=== PATIENT | female | born 1950 ===

== ENCOUNTER 2016-06-16 22:58 | Emergency (ER) | payer OTHER ==
--- NOTE | 2016-06-17 00:26 | DIAGNOSTIC IMAGING REPORT ---
PROCEDURE: XR CHEST 1 VIEW INDICATION: CHEST PAIN TECHNIQUE: Portable AP view (series 233 5 hours). COMPARISON: Compared to chest x-ray and 03/25/2012. FINDINGS: Allowing for overlying wires and electrodes, lungs are clear. Heart and mediastinum are normal. Thorax is normal. IMPRESSION: 1. Negative chest.
--- NOTE | 2016-06-17 02:50 | ED CLINICAL REPORT ---
Clinical Report - Physicians/Mid Levels [facility] [address] [place] [address] 06/16/2016 22:59 Patient: KATHY MORILLO Time Seen: 2306; initial patient contact. Arrived- By private vehicle. Historian- patient. HISTORY OF PRESENT ILLNESS Chief Complaint: CHEST PAIN. At its maximum, severity described as mild. When seen in the E.D., severity described as mild. Modifying factors- worsened by deep breaths. Not relieved by anything. It is described as pressure and it is described as located in the left chest area. No radiation. 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 It was abrupt in onset and has been constant but is not gone now. Onset during rest. No nausea, vomiting, difficulty breathing or diaphoresis. (no hx of DVT/PE, hx of recent surgery, trauma, hemoptysis/coughing, or leg swelling). No additional chest pain. Similar symptoms previously: None. Recent medical care: Not recently seen/assessed. REVIEW OF SYSTEMS No fever or skin rash. All systems otherwise negative, except as recorded above. PAST HISTORY See nurses notes. Medications: Albuterol Sulfate HFA Inhalation. Atenolol Oral. Lisinopril Oral. Omeprazole Oral. Allergies: Morphine Sulfate. SOCIAL HISTORY Never smoker. No alcohol use or drug use. No recent travel. Is a local resident. FAMILY HISTORY Negative. ADDITIONAL NOTES The nursing notes have been reviewed. PHYSICAL EXAM Vital Signs: 06/16/2016 23:07 BP: 172/77. HR: 68. RR: 20. O2 saturation: 98%. Temp: 97.6 F. Pain level now: 8/10. Hypertensive. Oxygen saturation normal. Appearance: Alert. Oriented X3. No acute distress. (non-toxic). Eyes: Pupils equal, round and reactive to light. Eyes normal inspection. (glasses). ENT: Ears normal. Nose normal. Pharynx normal. Neck: Normal inspection. Neck supple. CVS: Normal heart rate and rhythm. Heart sounds normal. Pulses normal. Respiratory: No respiratory distress. Breath sounds normal. Chest nontender. No rales, rhonchi or wheezes. Abdomen: Soft and nontender. Bowel sounds normal. Skin: Skin warm and dry. Normal skin color. No rash. Normal skin turgor. Extremities: Extremities exhibit normal ROM. No lower extremity edema. LABS, X-RAYS, AND EKG EKG: No acute ischemia. Normal sinus rhythm. Rate: 72. Normal P waves. Normal ABHAY. Normal QRS complex. Normal axis. Normal ST and T waves, QT and QTc. PVCs. Normal sinus. The study has been interpreted contemporaneously. The study has been independently viewed by me. The EKG appears to be a good tracing. Chest CT: (PROCEDURE: CTA THORAX WITH CONTRAST INDICATION: CP AND + D-DIMER TECHNIQUE: 89 ml of Isovue 370 was injected intravenously and axial images were obtained of the entire thorax with 3D sagittal and coronal MIP reconstructions. COMPARISON: Chest x-ray 06/16/2016. FINDINGS: No evidence of pulmonary emboli. Normal lung parenchyma. No effusion or adenopathy. Minor atherosclerosis of the aorta. No aortic dissection or aneurysm. Coronary atherosclerosis. Mild cardiomegaly 1.8 cm left adrenal nodule. Calcified splenic granulomas. Moderate degenerative changes of the spine. IMPRESSION: 1. No evidence of pulmonary emboli, aortic dissection or aneurysm. 2. Mild cardiomegaly 3. 1.8 cm left adrenal nodule). Laboratory Tests: Troponin-I: (LOUISE: 06/17/2016 01:42) ( [facility] 06/17/2016 02:18) Final results Test Result Flag Units (Reference) TROPONIN I <0.05 ng/mL (0.00-1.5) TROPONIN REFERENCE RANGE:<0.1 NEGATIVE0.1-1.5 INDETERMINANT>1.5 POSITIVE UA-Culture if indicated: (LOUISE: 06/16/2016 23:10) ( [facility] 06/17/2016 00:07) Final results Test Result Flag Units (Reference) URINE COLOR YELLOW URINE APPEARANCE CLEAR URINE GLUCOSE NEGATIVE (NEGATIVE) URINE BILIRUBIN NEGATIVE (NEGATIVE) URINE KETONE NEGATIVE (NEGATIVE) URINE SPECIFIC GRAVITY <= 1.005 L (1.010-1.030) URINE PH 6.0 (5.0-8.0) URINE PROTEIN NEGATIVE (NEGATIVE) URINE UROBILINOGEN 0.2 EU/dL (0.2-1.0) URINE NITRITE NEGATIVE (NEGATIVE) URINE BLOOD 1+ (NEGATIVE) URINE LEUK ESTERASE NEGATIVE (NEGATIVE) URINE RBC 0-1 rbc/hpf (0-1) URINE WBC NONE SEEN wbc/hpf (0-1) URINE EPITHELIAL CELLS 0-1 EPI/hpf (0-5) URINE BACTERIA TRACE (<1+) (NONE SEEN) URINE COMMENT CULT NOT INDICATED URINE CULTURES ARE SET-UP BASED ON THE FOLLOWING CRITERIA:POSITIVE NITRITEPOSITIVE LEUKOCYTE ESTERASEGREATER THAN 10 WHITE BLOOD CELLSMODERATE (2+) OR GREATER BACTERIA PT with INR: (LOUISE: 06/16/2016 23:15) ( MsgRcvd 06/17/2016 00:14) Final results Test Result Flag Units (Reference) INR 0.9 (0.8-1.2) Low Intensity Therapy: INR 1.5-2.0 PT range 18.5-23.1Mod.Intensity Therapy: INR 2.0-3.0 PT range 23.1-31.5High Intensity Therapy: INR 2.5-3.5 PT range 27.4-35.5High Intensity Therapy 2: INR 3.0-4.0 PT range 31.5-39.3 D-DIMER QUANTITATIVE 0.54 H ug/mLFEU (0.27-0.52) The primary value of this quantitative assay relates toits negative predictive value (i.e. exclusion) of pulmonaryembolism/deep vein thrombosis/DIC.Elevated levels of d-dimer may also occur with:, age, cancer, inflammation, liver disease,post-op, infection, hematoma, coronary disease, peripheralarteriopathy, bleeding disorders and thrombolytic treatment.Results should be correlated with other clinical andradiological data.Testing Methodology: Latex Immunoassay CMP: (LOUISE: 06/16/2016 23:15) ( MsgRcvd 06/17/2016 00:06) Final results Test Result Flag Units (Reference) GLUCOSE 104 mg/dL (70-110) BUN 14 mg/dL (7-18) CREATININE 0.8 mg/dL (0.6-1.3) Estimated GFR >60 mL/min Estimated GFR- >60 mL/min Note: Persistent reduction over 3 months in eGFR<60 mL/min/1.73 m2 defines CKD. Patients with eGFR values>=60 mL/min/1.73 m2 may also have CKD if evidence ofpersistent proteinuria. Additional information may be foundat [email or web address]. SODIUM 144 mmol/L (136-145) POTASSIUM 3.6 mmol/L (3.5-5.1) CHLORIDE 107 mmol/L (98-107) CARBON DIOXIDE 27 mmol/L (21-32) CALCIUM 8.8 mg/dL (8.5-10.1) TOTAL PROTEIN 7.0 g/dL (6.4-8.2) ALBUMIN 3.8 g/dL (3.3-5.0) BILIRUBIN, TOTAL 0.2 mg/dL (0.0-1.0) ALKALINE PHOSPHATASE 68 U/L (46-116) AST (SGOT) 12 L U/L (15-37) ALT (SGPT) 21 U/L (12-78) TROPONIN I <0.05 ng/mL (0.00-1.5) TROPONIN REFERENCE RANGE:<0.1 NEGATIVE0.1-1.5 INDETERMINANT>1.5 POSITIVE . PROGRESS AND PROCEDURES Course of Care: the patient is a pleasant 65-year-old female with no pertinent past medical history presenting for evaluation of chest pain. Symptoms appear to be atypical at this time. Patient will be evaluated with troponin as well as EKG and imaging of the chest. Patient is agreeable to the treatment and plan. the patient's workup was noted to have negative troponin 1. Second troponin has been ordered as of the patient's time course of her pain. D-dimer is positive. Patient will be evaluated with a CT scan of the chest. Patient updatedon the results of her workup thus far. Patient reports having improved symptoms while here in the emergency department. Repeat examination continues to be reassuring. Patient's workup is notable for the findings above. No acute abnormalities noted on patient's workup. Negative CT a of the chest. No concern at this time for thoracic aortic dissection, pulmonary embolism, acute myocardial infarction given patient's negative troponin 2. Because of the patient's negative workup here in the emergency department and overall low risk for acute myocardial infarction, believed patient is a stable outpatient candidate. Discussed with patient her workup here in the emergency department and need for outpatient cardiology follow-up and risk stratification. Also discussed with the patient her diagnosis, home care, follow-up. All questions have been answered. The patient expressed understanding of these instructions and was agreeable to them. Disposition: Discharged. Condition: good. CLINICAL IMPRESSION 06/16/2016 23:07 BP: 172/77. HR: 68. RR: 20. O2 saturation: 98%. Temp: 97.6 F. Pain level now: 8/10. Blood pressure normal. Oxygen saturation normal. Essential hypertension. Probable atypical chest pain .12 lead EKG performed. (left sided). INSTRUCTIONS Warnings: GENERAL WARNINGS: Return or contact your physician immediately if your condition worsens or changes unexpectedly, if not improving as expected, or if other problems arise. SPECIFICALLY, return if you develop chest, neck, jaw, shoulder, arm, or back pain, difficulty breathing, a fluttering sensation in your chest, lightheadedness, fainting, excessive fatigue, or sudden sweating. symptoms return. Your Current Medications: CONTINUE TAKING THE FOLLOWING MEDICATIONS: Albuterol Sulfate HFA Inhalation. Atenolol Oral. Lisinopril Oral. Omeprazole Oral. Follow-up: Return to the emergency department as needed. Follow up with your doctor in three days. Reason for referral: recheck today's concerns. Summary of care provided to patient via paper. Screening today revealed the patient's blood pressure to be in the hypertensive range. The patient should follow up with a primary care provider for blood pressure management. Understanding of the discharge instructions verbalized by patient. Follow-up with: Prakash Dutton MD, Cardiology, , [facility] - Cardiology, [address] [place] [address], [id number] Follow up in three days. Reason for referral: recheck today's concerns. Summary of care provided to patient via paper. (Electronically signed by Jignesh Agarwal Dr. 06/19/2016 4:26)
--- NOTE | 2016-06-17 02:50 | ED NURSING NOTES ---
Clinical Report - Nurses [facility] [address] [place] [address] 06/16/2016 22:59 Patient: KATHY MORILLO TRIAGE Triage time 2307. Acuity: LEVEL 2. Chief Complaint: CHEST PAIN. CRISSY COMA SCORE: Crissy Coma Scale: 15- eyes open spontaneously (4); best verbal response- oriented x 4 (5); best motor response- obeys commands (6). --23:16 Valery Reyes R.N. 23:07 06/16/16. BP: 172/77. HR: 68. RR: 20 (unlabored). O2 saturation: 98% on room air. Temp: 97.6 F (oral). Pain level now: 09/14. --23:16 Valery Reyes R.N. Weight: 68 kg stated. Height/Length: 65 inches Per Patient. BMI: 25. --23:06 Valery Reyes R.N. Medications Atenolol Oral. Lisinopril Oral. Omeprazole Oral. --23:14 Valery Reyes R.N. Albuterol Sulfate HFA Inhalation. --23:15 Valery Reyes R.N. Allergies Morphine Sulfate. --23:12 Valery Reyes R.N. History Arrived by private vehicle. Historian: patient. Accompanied by family. Primary physician (Salo vargas Fred). ( pt c/o left side chest pain/heaviness x 1 hour. pt states pain increases when taking a deep breath. pt states pain is non-radiating. pt denies any other symptoms. no cardiac hx. hx of MS, asthma, and HTN.). This started just prior to arrival. No difficulty breathing, sweating episodes, nausea, vomiting or cough. 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 SOCIAL HX: Never smoker. No alcohol use or drug use. ABUSE ASSESSMENT: No report of abuse. FALL RISK ASSESSMENT: Fall risk assessment completed. No fall risk identified. NUTRITIONAL RISK ASSESSMENT: The nutritional risk assessment revealed no deficiencies. FUNCTIONAL ASSESSMENT: Functional assessment: no impairments noted. LEARNING NEEDS ASSESSMENT: The learning needs assessment revealed no barriers. SKIN INTEGRITY ASSESSMENT: Skin integrity risk assessment completed. No skin integrity risk identified. --23:16 Valery Reyes R.N. PROBLEMS: Asthma. Hypertension. Multiple Sclerosis. --23:12 Valery Reyes R.N. ADDITIONAL SURGERIES: Carpal Tunnel Surgery. Cholecystectomy. Knee Surgery. --23:12 Valery Reyes R.N. Interventions ID band on patient. To treatment room. --23:16 Valery Reyes R.N. PHYSICAL ASSESSMENT 23:15 pt c/o left side chest pain when taking a deep breath in. Ambulatory to room. GENERAL / NEURO / PSYCH: Alert. Oriented X 4. HEENT: Mucous membranes are pink. RESPIRATORY: Respirations not labored. Breath sounds within normal limits. CVS: Normal sinus rhythm noted. Cardiac rhythm: normal sinus rhythm. Capillary refill less than 2 seconds. GI / : Abdomen soft and nontender. EXTREMITIES: No lower extremity edema. SKIN: Skin is warm and dry. Normal skin turgor. Skin is non-tender. --00:03 Valery Reyes R.N. NURSING PROGRESS NOTES 23:20 06/16/2016 Site #1 started via IV in the left antecubital space with an 20g angiocath, with aseptic technique and good blood return; one attempt. Blood drawn: rainbow set. Labeled in the presence of the patient and sent to the lab. Saline lock flushed with 10 mL saline. --23:25 Luis Garduno R.N. EKG time: (5579). EKG was ordered, performed by a tech and shown to the ED physician. --23:29 Susanna Estevez 23:12. monitoring specialist, pulse oximeter and NIBP monitor placed on patient; monitor alarms on. Head of bed elevated. Two patient identifiers checked. Call light placed in reach. Bed placed in lowest position. Brakes of bed on. --23:36 Luis Garduno R.N. 00:20 pt assisted to bathroom and back to room. pt placed back on cardiac nurse, bp cuff and oximeter. --00:32 Valery Reyes R.N. 23:45 06/16/16. BP: 121/94. HR: 79. RR: 18 (unlabored). O2 saturation: 100% on room air. Pain level now: 07/15. Additional comments: occasional PVCs noted. --01:29 Valery Reyes R.N. 01:22 pt assisted to bathroom and back to room. pt voided. --01:29 Valery Reyes R.N. 01:27 06/17/16. BP: 161/73. HR: 72. RR: 18 (unlabored). O2 saturation: 100% on room air. Pain level now: 0/10. Additional comments: multiple PVCs reading on monitor. MD notified. . --01:30 Valery Reyes R.N. repeat troponin drawn from IV site. labeled and sent to lab. --01:47 Valery Reyes R.N. DISPOSITION / DISCHARGE <<STRICKEN ENTRY-- 01:51 06/17/16. BP: 99/70. HR: 81. RR: 18. O2 saturation: 97% on room air. Temp: deferred. Pain level now: 06/14. --01:52 Valery Reyes R.N. --END STRIKE>> Charted on wrong patient. --01:53 Valery Reyes R.N. <<STRICKEN ENTRY-- Departure time: 0151. --01:52 Valery Reyes R.N. --END STRIKE>> Charted On Wrong Patient --01:57 Valery Reyes R.N. <<STRICKEN ENTRY-- Condition at departure: improved. No learning barriers present. Discharge instructions provided and reviewed with the patient. Reviewed medication(s). Prescription(s) given to the patient (Percocet). Patient verbalized understanding. Written instructions provided in Vincentian. The patient was discharged by the physician. She was discharged home and accompanied by finishing lab technician. She left the Emergency Department ambulatory and via private vehicle. Diving Fisher driving. Medication list reviewed and validated with the patient. --01:53 Valery Reyes R.N. --END STRIKE>> Charted On Wrong Patient --01:53 Valery Reyes R.N. 03:05 06/17/16. BP: 127/62. HR: 63. RR: 20 (unlabored). O2 saturation: 100% on room air. Temp: deferred. Pain level now: 0/10. --04:02 Valery Reyes R.N. Cardiac rhythm: normal sinus rhythm; occasional PVCs. Departure time: 0305. Condition at departure: improved. No learning barriers present. Discharge instructions provided and reviewed with the patient. Patient verbalized understanding. Written instructions provided in Vincentian. The patient was discharged by the physician. She was discharged home and accompanied by spouse. She left the Emergency Department ambulatory and via private vehicle. Spouse driving. Medication list reviewed and validated with the patient. --04:02 Valery Reyes R.N. 03:03 06/17/2016 Site #1 removed upon discharge. Bandage applied. --04:03 Valery Reyes R.N. Locked/Released at 06/17/2016 4:04 by Valery Reyes R.N.
--- NOTE | 2016-06-17 02:50 | ED CLINICAL REPORT ---
Clinical Report - Physicians/Mid Levels [facility] [address] [place] [address] 06/16/2016 22:59 Patient: KATHY MORILLO Time Seen: 2306; initial patient contact. Arrived- By private vehicle. Historian- patient. HISTORY OF PRESENT ILLNESS Chief Complaint: CHEST PAIN. At its maximum, severity described as mild. When seen in the E.D., severity described as mild. Modifying factors- worsened by deep breaths. Not relieved by anything. It is described as pressure and it is described as located in the left chest area. No radiation. 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 It was abrupt in onset and has been constant but is not gone now. Onset during rest. No nausea, vomiting, difficulty breathing or diaphoresis. (no hx of DVT/PE, hx of recent surgery, trauma, hemoptysis/coughing, or leg swelling). No additional chest pain. Similar symptoms previously: None. Recent medical care: Not recently seen/assessed. REVIEW OF SYSTEMS No fever or skin rash. All systems otherwise negative, except as recorded above. PAST HISTORY See nurses notes. Medications: Albuterol Sulfate HFA Inhalation. Atenolol Oral. Lisinopril Oral. Omeprazole Oral. Allergies: Morphine Sulfate. SOCIAL HISTORY Never smoker. No alcohol use or drug use. No recent travel. Is a local resident. FAMILY HISTORY Negative. ADDITIONAL NOTES The nursing notes have been reviewed. PHYSICAL EXAM Vital Signs: 06/16/2016 23:07 BP: 172/77. HR: 68. RR: 20. O2 saturation: 98%. Temp: 97.6 F. Pain level now: 8/10. Hypertensive. Oxygen saturation normal. Appearance: Alert. Oriented X3. No acute distress. (non-toxic). Eyes: Pupils equal, round and reactive to light. Eyes normal inspection. (glasses). ENT: Ears normal. Nose normal. Pharynx normal. Neck: Normal inspection. Neck supple. CVS: Normal heart rate and rhythm. Heart sounds normal. Pulses normal. Respiratory: No respiratory distress. Breath sounds normal. Chest nontender. No rales, rhonchi or wheezes. Abdomen: Soft and nontender. Bowel sounds normal. Skin: Skin warm and dry. Normal skin color. No rash. Normal skin turgor. Extremities: Extremities exhibit normal ROM. No lower extremity edema. LABS, X-RAYS, AND EKG EKG: No acute ischemia. Normal sinus rhythm. Rate: 72. Normal P waves. Normal ABHAY. Normal QRS complex. Normal axis. Normal ST and T waves, QT and QTc. PVCs. Normal sinus. The study has been interpreted contemporaneously. The study has been independently viewed by me. The EKG appears to be a good tracing. Chest CT: (PROCEDURE: CTA THORAX WITH CONTRAST INDICATION: CP AND + D-DIMER TECHNIQUE: 89 ml of Isovue 370 was injected intravenously and axial images were obtained of the entire thorax with 3D sagittal and coronal MIP reconstructions. COMPARISON: Chest x-ray 06/16/2016. FINDINGS: No evidence of pulmonary emboli. Normal lung parenchyma. No effusion or adenopathy. Minor atherosclerosis of the aorta. No aortic dissection or aneurysm. Coronary atherosclerosis. Mild cardiomegaly 1.8 cm left adrenal nodule. Calcified splenic granulomas. Moderate degenerative changes of the spine. IMPRESSION: 1. No evidence of pulmonary emboli, aortic dissection or aneurysm. 2. Mild cardiomegaly 3. 1.8 cm left adrenal nodule). Laboratory Tests: Troponin-I: (LOUISE: 06/17/2016 01:42) ( [facility] 06/17/2016 02:18) Final results Test Result Flag Units (Reference) TROPONIN I <0.05 ng/mL (0.00-1.5) TROPONIN REFERENCE RANGE:<0.1 NEGATIVE0.1-1.5 INDETERMINANT>1.5 POSITIVE UA-Culture if indicated: (LOUISE: 06/16/2016 23:10) ( [facility] 06/17/2016 00:07) Final results Test Result Flag Units (Reference) URINE COLOR YELLOW URINE APPEARANCE CLEAR URINE GLUCOSE NEGATIVE (NEGATIVE) URINE BILIRUBIN NEGATIVE (NEGATIVE) URINE KETONE NEGATIVE (NEGATIVE) URINE SPECIFIC GRAVITY <= 1.005 L (1.010-1.030) URINE PH 6.0 (5.0-8.0) URINE PROTEIN NEGATIVE (NEGATIVE) URINE UROBILINOGEN 0.2 EU/dL (0.2-1.0) URINE NITRITE NEGATIVE (NEGATIVE) URINE BLOOD 1+ (NEGATIVE) URINE LEUK ESTERASE NEGATIVE (NEGATIVE) URINE RBC 0-1 rbc/hpf (0-1) URINE WBC NONE SEEN wbc/hpf (0-1) URINE EPITHELIAL CELLS 0-1 EPI/hpf (0-5) URINE BACTERIA TRACE (<1+) (NONE SEEN) URINE COMMENT CULT NOT INDICATED URINE CULTURES ARE SET-UP BASED ON THE FOLLOWING CRITERIA:POSITIVE NITRITEPOSITIVE LEUKOCYTE ESTERASEGREATER THAN 10 WHITE BLOOD CELLSMODERATE (2+) OR GREATER BACTERIA PT with INR: (LOUISE: 06/16/2016 23:15) ( MsgRcvd 06/17/2016 00:14) Final results Test Result Flag Units (Reference) INR 0.9 (0.8-1.2) Low Intensity Therapy: INR 1.5-2.0 PT range 18.5-23.1Mod.Intensity Therapy: INR 2.0-3.0 PT range 23.1-31.5High Intensity Therapy: INR 2.5-3.5 PT range 27.4-35.5High Intensity Therapy 2: INR 3.0-4.0 PT range 31.5-39.3 D-DIMER QUANTITATIVE 0.54 H ug/mLFEU (0.27-0.52) The primary value of this quantitative assay relates toits negative predictive value (i.e. exclusion) of pulmonaryembolism/deep vein thrombosis/DIC.Elevated levels of d-dimer may also occur with:, age, cancer, inflammation, liver disease,post-op, infection, hematoma, coronary disease, peripheralarteriopathy, bleeding disorders and thrombolytic treatment.Results should be correlated with other clinical andradiological data.Testing Methodology: Latex Immunoassay CMP: (LOUISE: 06/16/2016 23:15) ( MsgRcvd 06/17/2016 00:06) Final results Test Result Flag Units (Reference) GLUCOSE 104 mg/dL (70-110) BUN 14 mg/dL (7-18) CREATININE 0.8 mg/dL (0.6-1.3) Estimated GFR >60 mL/min Estimated GFR- >60 mL/min Note: Persistent reduction over 3 months in eGFR<60 mL/min/1.73 m2 defines CKD. Patients with eGFR values>=60 mL/min/1.73 m2 may also have CKD if evidence ofpersistent proteinuria. Additional information may be foundat [email or web address].org. SODIUM 144 mmol/L (136-145) POTASSIUM 3.6 mmol/L (3.5-5.1) CHLORIDE 107 mmol/L (98-107) CARBON DIOXIDE 27 mmol/L (21-32) CALCIUM 8.8 mg/dL (8.5-10.1) TOTAL PROTEIN 7.0 g/dL (6.4-8.2) ALBUMIN 3.8 g/dL (3.3-5.0) BILIRUBIN, TOTAL 0.2 mg/dL (0.0-1.0) ALKALINE PHOSPHATASE 68 U/L (46-116) AST (SGOT) 12 L U/L (15-37) ALT (SGPT) 21 U/L (12-78) TROPONIN I <0.05 ng/mL (0.00-1.5) TROPONIN REFERENCE RANGE:<0.1 NEGATIVE0.1-1.5 INDETERMINANT>1.5 POSITIVE . PROGRESS AND PROCEDURES Course of Care: the patient is a pleasant 65-year-old female with no pertinent past medical history presenting for evaluation of chest pain. Symptoms appear to be atypical at this time. Patient will be evaluated with troponin as well as EKG and imaging of the chest. Patient is agreeable to the treatment and plan. the patient's workup was noted to have negative troponin 1. Second troponin has been ordered as of the patient's time course of her pain. D-dimer is positive. Patient will be evaluated with a CT scan of the chest. Patient updatedon the results of her workup thus far. Patient reports having improved symptoms while here in the emergency department. Repeat examination continues to be reassuring. Patient's workup is notable for the findings above. No acute abnormalities noted on patient's workup. Negative CT a of the chest. No concern at this time for thoracic aortic dissection, pulmonary embolism, acute myocardial infarction given patient's negative troponin 2. Because of the patient's negative workup here in the emergency department and overall low risk for acute myocardial infarction, believed patient is a stable outpatient candidate. Discussed with patient her workup here in the emergency department and need for outpatient cardiology follow-up and risk stratification. Also discussed with the patient her diagnosis, home care, follow-up. All questions have been answered. The patient expressed understanding of these instructions and was agreeable to them. Disposition: Discharged. Condition: good. CLINICAL IMPRESSION 06/16/2016 23:07 BP: 172/77. HR: 68. RR: 20. O2 saturation: 98%. Temp: 97.6 F. Pain level now: 8/10. Blood pressure normal. Oxygen saturation normal. Essential hypertension. Probable atypical chest pain .12 lead EKG performed. (left sided). INSTRUCTIONS Warnings: GENERAL WARNINGS: Return or contact your physician immediately if your condition worsens or changes unexpectedly, if not improving as expected, or if other problems arise. SPECIFICALLY, return if you develop chest, neck, jaw, shoulder, arm, or back pain, difficulty breathing, a fluttering sensation in your chest, lightheadedness, fainting, excessive fatigue, or sudden sweating. symptoms return. Your Current Medications: CONTINUE TAKING THE FOLLOWING MEDICATIONS: Albuterol Sulfate HFA Inhalation. Atenolol Oral. Lisinopril Oral. Omeprazole Oral. Follow-up: Return to the emergency department as needed. Follow up with your doctor in three days. Reason for referral: recheck today's concerns. Summary of care provided to patient via paper. Screening today revealed the patient's blood pressure to be in the hypertensive range. The patient should follow up with a primary care provider for blood pressure management. Understanding of the discharge instructions verbalized by patient. Follow-up with: Prakash Dutton MD, Cardiology, , [facility], [address] [place] [address], [id number] Follow up in three days. Reason for referral: recheck today's concerns. Summary of care provided to patient via paper. (Electronically signed by Jignesh Agarwal Dr. 06/19/2016 4:26)
--- NOTE | 2016-06-17 02:50 | ED NURSING NOTES ---
Clinical Report - Nurses [facility] [address] [place] [address] 06/16/2016 22:59 Patient: KATHY MORILLO TRIAGE Triage time 2307. Acuity: LEVEL 2. Chief Complaint: CHEST PAIN. CRISSY COMA SCORE: Crissy Coma Scale: 15- eyes open spontaneously (4); best verbal response- oriented x 4 (5); best motor response- obeys commands (6). --23:16 Valery Reyes R.N. 23:07 06/16/16. BP: 172/77. HR: 68. RR: 20 (unlabored). O2 saturation: 98% on room air. Temp: 97.6 F (oral). Pain level now: 09/14. --23:16 Valery Reyes R.N. Weight: 68 kg stated. Height/Length: 65 inches Per Patient. BMI: 25. --23:06 Valery Reyes R.N. Medications Atenolol Oral. Lisinopril Oral. Omeprazole Oral. --23:14 Valery Reyes R.N. Albuterol Sulfate HFA Inhalation. --23:15 Valery Reyes R.N. Allergies Morphine Sulfate. --23:12 Valery Reyes R.N. History Arrived by private vehicle. Historian: patient. Accompanied by family. Primary physician (Salo vargas Fred). ( pt c/o left side chest pain/heaviness x 1 hour. pt states pain increases when taking a deep breath. pt states pain is non-radiating. pt denies any other symptoms. no cardiac hx. hx of MS, asthma, and HTN.). This started just prior to arrival. No difficulty breathing, sweating episodes, nausea, vomiting or cough. Treatment CORE MICROARCHITECT: None. SOCIAL HX: Never smoker. No alcohol use or drug use. ABUSE ASSESSMENT: No report of abuse. FALL RISK ASSESSMENT: Fall risk assessment completed. No fall risk identified. NUTRITIONAL RISK ASSESSMENT: The nutritional risk assessment revealed no deficiencies. FUNCTIONAL ASSESSMENT: Functional assessment: no impairments noted. LEARNING NEEDS ASSESSMENT: The learning needs assessment revealed no barriers. SKIN INTEGRITY ASSESSMENT: Skin integrity risk assessment completed. No skin integrity risk identified. --23:16 Valery Reyes R.N. PROBLEMS: Asthma. Hypertension. Multiple Sclerosis. --23:12 Valery Reyes R.N. ADDITIONAL SURGERIES: Carpal Tunnel Surgery. Cholecystectomy. Knee Surgery. --23:12 Valery Reyes R.N. Interventions ID band on patient. To treatment room. --23:16 Valery Reyes R.N. PHYSICAL ASSESSMENT 23:15 pt c/o left side chest pain when taking a deep breath in. Ambulatory to room. GENERAL / NEURO / PSYCH: Alert. Oriented X 4. HEENT: Mucous membranes are pink. RESPIRATORY: Respirations not labored. Breath sounds within normal limits. CVS: Normal sinus rhythm noted. Cardiac rhythm: normal sinus rhythm. Capillary refill less than 2 seconds. GI / : Abdomen soft and nontender. EXTREMITIES: No lower extremity edema. SKIN: Skin is warm and dry. Normal skin turgor. Skin is non-tender. --00:03 Valery Reyes R.N. NURSING PROGRESS NOTES 23:20 06/16/2016 Site #1 started via IV in the left antecubital space with an 20g angiocath, with aseptic technique and good blood return; one attempt. Blood drawn: rainbow set. Labeled in the presence of the patient and sent to the lab. Saline lock flushed with 10 mL saline. --23:25 Luis Garduno R.N. EKG time: (7125). EKG was ordered, performed by a tech and shown to the ED physician. --23:29 Susanna Estevez 23:12. front desk monitor, pulse oximeter and NIBP monitor placed on patient; monitor alarms on. Head of bed elevated. Two patient identifiers checked. Call light placed in reach. Bed placed in lowest position. Brakes of bed on. --23:36 Luis Garduno R.N. 00:20 pt assisted to bathroom and back to room. pt placed back on secured entrance monitor, bp cuff and oximeter. --00:32 Valery Reyes R.N. 23:45 06/16/16. BP: 121/94. HR: 79. RR: 18 (unlabored). O2 saturation: 100% on room air. Pain level now: 07/15. Additional comments: occasional PVCs noted. --01:29 Valery Reyes R.N. 01:22 pt assisted to bathroom and back to room. pt voided. --01:29 Valery Reyes R.N. 01:27 06/17/16. BP: 161/73. HR: 72. RR: 18 (unlabored). O2 saturation: 100% on room air. Pain level now: 0/10. Additional comments: multiple PVCs reading on monitor. MD notified. . --01:30 Valery Reyes R.N. repeat troponin drawn from IV site. labeled and sent to lab. --01:47 Valery Reyes R.N. DISPOSITION / DISCHARGE <<STRICKEN ENTRY-- 01:51 06/17/16. BP: 99/70. HR: 81. RR: 18. O2 saturation: 97% on room air. Temp: deferred. Pain level now: 06/14. --01:52 Valery Reyes R.N. --END STRIKE>> Charted on wrong patient. --01:53 Valery Reyes R.N. <<STRICKEN ENTRY-- Departure time: 0151. --01:52 Valery Reyes R.N. --END STRIKE>> Charted On Wrong Patient --01:57 Valery Reyes R.N. <<STRICKEN ENTRY-- Condition at departure: improved. No learning barriers present. Discharge instructions provided and reviewed with the patient. Reviewed medication(s). Prescription(s) given to the patient (Percocet). Patient verbalized understanding. Written instructions provided in Beninese. The patient was discharged by the physician. She was discharged home and accompanied by hedis nurse. She left the Emergency Department ambulatory and via private vehicle. 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 Medication list reviewed and validated with the patient. --01:53 Valery Reyes R.N. --END STRIKE>> Charted On Wrong Patient --01:53 Valery Reyes R.N. 03:05 06/17/16. BP: 127/62. HR: 63. RR: 20 (unlabored). O2 saturation: 100% on room air. Temp: deferred. Pain level now: 0/10. --04:02 Valery Reyes R.N. Cardiac rhythm: normal sinus rhythm; occasional PVCs. Departure time: 0305. Condition at departure: improved. No learning barriers present. Discharge instructions provided and reviewed with the patient. Patient verbalized understanding. Written instructions provided in Beninese. The patient was discharged by the physician. She was discharged home and accompanied by spouse. She left the Emergency Department ambulatory and via private vehicle. Spouse driving. Medication list reviewed and validated with the patient. --04:02 Valery Reyes R.N. 03:03 06/17/2016 Site #1 removed upon discharge. Bandage applied. --04:03 Valery Reyes R.N. Locked/Released at 06/17/2016 4:04 by Valery Reyes R.N.
--- NOTE | 2016-06-17 02:51 | ED ORDER SUMMARY ---
..... Patient: KATHY MORILLO OrderSheet [facility] VisitID: [id number] [place] [address] 65y, F Registration Date/Time: 06/16/2016 ORDER SHEET Weight: 68.0 kg (stated) Allergies: Morphine Sulfate GENERAL ORDERS: EKG - ER Stat (23:06/16/2016 Annika Fountain) (23:17 Marlon) Chest 1V Urgent (23:06/16/2016 Annika Fountain) (Ack 23:20 CHagerty ER Dye Blender) (23:39 Lalito) Embedded Processor (Continuous) (CP) (:06/16/2016 Annika Fountain) (23:25 JQuivey R.N.) CBC w Diff Urgent (23:06/16/2016 Annika Fountain) (Ack 23:24 CHagdannielle ER Dye Blender) (23:25 JQuivey R.N.) CMP Urgent (23:06/16/2016 Annika Fountain) (Ack 23:24 CHagerty ER Dye Blender) (23:25 JQuivey R.N.) UA-Culture if indicated Urgent (23:15 06/16/2016 Annika Fountain) (Ack 23:24 CHagdannielle ER Dye Blender) (23:25 JQuivey R.N.) PT with INR Urgent (23:06/16/2016 Annika Fountain) (Ack 23:24 CHagdannielle ER Dye Blender) (23:25 JQuivey R.N.) D-Dimer Urgent (23:06/16/2016 Annika Fountain) (Ack 23:24 CHagdannielle ER Dye Blender) (23:25 JQuivey R.N.) Troponin-I Urgent (23:06/16/2016 Annika Fountain) (Ack 23:24 CHagdannielle ER Dye Blender) (23:25 JQuivey R.N.) Pulse oximeter (23:06/16/2016 Annika Fountain) (23:25 JQuivey R.N.) CTA Thorax w Cont (No) (gfr > 60) Urgent (00:27 06/17/2016 Annika Fountain) (Ack 0:32 CHagerty ER Dye Blender) (1:06 Ingridger) Troponin-I (redraw now) Urgent (01:30 06/17/2016 Annika Fountain) (Ack 1:36 CHagerty ER Dye Blender) (1:51 JQuiveleodan R.N.) MEDICATION ORDERS: IV FLUIDS: IV Saline Lock (23:15 06/16/2016 Annika Fountain) (Ack 23:17 HKone R.N.) (23:25 JQuivey R.N.) ORDER SHEET NOTES: [Electronically signed by Valery Reyes R.N. (04:04 06/17/2016)] [Electronically signed by Jignesh Agarwal Dr. (04:26 06/19/2016)] [Electronically locked/signed by Valery Reyes R.N. (04:04 06/17/2016)]
--- NOTE | 2016-06-17 02:51 | ED ORDER SUMMARY ---
..... Patient: KATHY MORILLO OrderSheet [facility] VisitID: [id number] [place] [address] 65y, F Registration Date/Time: 06/16/2016 ORDER SHEET Weight: 68.0 kg (stated) Allergies: Morphine Sulfate GENERAL ORDERS: EKG - ER Stat (23:06/16/2016 Annika Fountain) (23:17 Marlon) Chest 1V Urgent (23:06/16/2016 Annika Fountain) (Ack 23:20 CHagerty ER Iron Installer) (23:39 Lalito) Supervisor Paste Mixing (Continuous) (CP) (:06/16/2016 Annika Fountain) (23:25 JQuivey R.N.) CBC w Diff Urgent (23:06/16/2016 Annika Fountain) (Ack 23:24 CHagdannielle ER Iron Installer) (23:25 JQuivey R.N.) CMP Urgent (23:06/16/2016 Annika Fountain) (Ack 23:24 CHagerty ER Iron Installer) (23:25 JQuivey R.N.) UA-Culture if indicated Urgent (23:15 06/16/2016 Annika Fountain) (Ack 23:24 CHagdannielle ER Iron Installer) (23:25 JQuivey R.N.) PT with INR Urgent (23:06/16/2016 Annika Fountain) (Ack 23:24 CHagdannielle ER Iron Installer) (23:25 JQuivey R.N.) D-Dimer Urgent (23:06/16/2016 Annika Fountain) (Ack 23:24 CHagdannielle ER Iron Installer) (23:25 JQuivey R.N.) Troponin-I Urgent (23:06/16/2016 Annika Fountain) (Ack 23:24 CHagdannielle ER Iron Installer) (23:25 JQuivey R.N.) Pulse oximeter (23:06/16/2016 Annika Fountain) (23:25 JQuivey R.N.) CTA Thorax w Cont (No) (gfr > 60) Urgent (00:27 06/17/2016 Annika Fountain) (Ack 0:32 CHagerty ER Iron Installer) (1:06 Ingridger) Troponin-I (redraw now) Urgent (01:30 06/17/2016 Annika Fountain) (Ack 1:36 CHagerty ER Iron Installer) (1:51 JQuiveleodan R.N.) MEDICATION ORDERS: IV FLUIDS: IV Saline Lock (23:15 06/16/2016 Annika Fountain) (Ack 23:17 HKone R.N.) (23:25 JQuivey R.N.) ORDER SHEET NOTES: [Electronically signed by Valery Reyes R.N. (04:04 06/17/2016)] [Electronically signed by Jignesh Agarwal Dr. (04:26 06/19/2016)] [Electronically locked/signed by Valery Reyes R.N. (04:04 06/17/2016)]
--- NOTE | 2016-06-17 07:58 | DIAGNOSTIC IMAGING REPORT ---
PROCEDURE: CTA THORAX WITH CONTRAST INDICATION: CP AND + D-DIMER TECHNIQUE: 89 ml of Isovue 370 was injected intravenously and axial images were obtained of the entire thorax with 3D sagittal and coronal MIP reconstructions. COMPARISON: Chest x-ray 06/16/2016. FINDINGS: No evidence of pulmonary emboli. Normal lung parenchyma. No effusion or adenopathy. Minor atherosclerosis of the aorta. No aortic dissection or aneurysm. Coronary atherosclerosis. Mild cardiomegaly 1.8 cm left adrenal nodule. Calcified splenic granulomas. Moderate degenerative changes of the spine. IMPRESSION: 1. No evidence of pulmonary emboli, aortic dissection or aneurysm. 2. Mild cardiomegaly 3. 1.8 cm left adrenal nodule 4. Preliminary results submitted by Dr. Martinez, [facility] radiology.
--- NOTE | 2016-06-19 04:26 | ED DISCHARGE INSTRUCTIONS ---
Patient: KATHY MORILLO General Instructions [facility] VisitID: [id number] [address] [place] [place] [address] 65y, F Registration Date/Time: 06/16/2016 06/16/2016 23:07 BP: 172/77. HR: 68. RR: 20. O2 saturation: 98%. Temp: 97.6 F. Pain level now: 8/10. Blood pressure normal. Oxygen saturation normal. Essential hypertension. Probable atypical chest pain .12 lead EKG performed. (left sided). INSTRUCTIONS Warnings: GENERAL WARNINGS: Return or contact your physician immediately if your condition worsens or changes unexpectedly, if not improving as expected, or if other problems arise. SPECIFICALLY, return if you develop chest, neck, jaw, shoulder, arm, or back pain, difficulty breathing, a fluttering sensation in your chest, lightheadedness, fainting, excessive fatigue, or sudden sweating. symptoms return. Your Current Medications: CONTINUE TAKING THE FOLLOWING MEDICATIONS: Albuterol Sulfate HFA Inhalation. Atenolol Oral. Lisinopril Oral. Omeprazole Oral. Follow-up: Return to the emergency department as needed. Follow up with your doctor in three days. Reason for referral: recheck today's concerns. Summary of care provided to patient via paper. Screening today revealed the patient's blood pressure to be in the hypertensive range. The patient should follow up with a primary care provider for blood pressure management. Understanding of the discharge instructions verbalized by patient. Follow-up with: Prakash Dutton MD, Cardiology, , [facility] - Cardiology, [address] [place], [place] [id number] Follow up in three days. Reason for referral: recheck today's concerns. Summary of care provided to patient via paper. ADDITIONAL INFORMATION Chest Pain, Uncertain Cause Chest pain can happen for a number of reasons. Sometimes the cause can not be determined. If yourcondition does not seem serious, and your pain does not appear to be coming from your heart, your doctor may recommend watching it closely. Sometimes the signs of a serious problem take more time to appear. Therefore, watch for the warning signs listed below. Home care After your visit, follow these recommendations: Rest today and avoid strenuous activity. Take any prescribed medicine as directed. Follow-up care Follow up with your doctor or this facility as instructed or if you do not start to feel better within 24 hours. Call 911 Get immediate medical attention if any of the following occur: A change in the type of pain: if it feels different, becomes more severe, lasts longer, or begins to spread into your shoulder, arm, neck, jaw or back Shortness of breath or increased pain with breathing Weakness, dizziness, or fainting Rapid heart beat Get prompt medical attention Call your doctor right away if any of the following occur: Cough with dark colored sputum (phlegm) or blood Fever of 100.4F(38C) or higher, or as directed by your health care provider Swelling, pain or redness in one leg High Blood Pressure --Established High Blood Pressure (Hypertension) is a chronic disease. The cause is unknown in most cases. It can usually be controlled with lifestyle changes and/or medicines. Symptoms of high blood pressure may include headache, dizziness, visual changes, chest pain and shortness of breath. Sometimes it causes no symptoms at all. However, even if there are no symptoms, untreated high blood pressure increases the risk of heart attack, also known as acute myocardial infarction, or AMI, and stroke. It is a serious health risk and should not be ignored. A normal blood pressure is 120/80 or less. The first (top) number is the "systolic" pressure. The second (bottom) number is the "diastolic" pressure. Hypertension exists when either the top number is 140 or higher, OR the bottom number is 90 or higher on repeated measurements. Home Care: All patients with high blood pressure should do the following to lower their pressure. If you are on medicines, then these methods may reduce or eliminate your need for medicines in the future. Begin a weight loss program if you are overweight. Reduce your salt intake. Avoid high salt foods (olives, pickles, smoked meats, salted potato chips, etc.). Do not add salt to your food at the table. Use only small amounts of salt when cooking. Begin an exercise program. Discuss with your doctor what type of exercise program would be best for you. It doesn't have to be difficult. Even brisk walking for 20 minutes three times a week is a good form of exercise. Avoid medicines which contain heart stimulants. This includes many cold and sinus decongestant pills and sprays as well as diet pills. Check the warnings about hypertension on the label. Stimulants such as amphetamine or cocaine could be lethal for someone with hypertension. Never take these. Limit your caffeine intake or switch to caffeine-free products. Stop smoking. If you are a long-time smoker, this can be hard. Enroll in a stop-smoking program to improve your chance of success. Learning how to handle stress better is an important part of any program to lower blood pressure. Learn about relaxation methods such as meditation, yoga or biofeedback. If medicines were prescribed, take them exactly as directed. Missing doses may cause your blood pressure get out of control. Consider buying an automatic blood pressure machine (available at most pharmacies). Use this to monitor your blood pressure at home and report the results to your doctor. Follow Up: Regular visits to your own physician for blood pressure checks and medicine adjustment is an important part of your care. Make a follow-up appointment as directed by our staff. Get Prompt Medical Attention if any of the following occur: Chest pain or shortness of breath Severe headache Throbbing or rushing sound in the ears Nosebleed Sudden severe abdominal pain Extreme drowsiness, confusion or fainting Dizziness or vertigo (dizziness with spinning sensation) Weakness of an arm or leg or one side of the face Difficulty with speech or vision You have been given the following additional information: Chest Pain, Uncertain Cause Hypertension, Established (Electronically signed by Jignesh Agarwal Dr. 06/19/2016 4:26)
--- NOTE | 2016-06-19 04:26 | ED MAR SUMMARY ---
..... Medication Administration Record [facility] [address] [place], [place] [id number] Patient: KATHY MORILLO Visit ID: [id number] 65y, F Weight: 68.0 kg Height/Length: 65 in BMI: 25 ALLERGIES: Morphine Sulfate
--- NOTE | 2016-06-19 04:26 | ED MAR SUMMARY ---
..... Medication Administration Record [facility] [address] [place], [place] [id number] Patient: KATHY MORILLO Visit ID: [id number] 65y, F Weight: 68.0 kg Height/Length: 65 in BMI: 25 ALLERGIES: Morphine Sulfate
--- NOTE | 2016-06-19 04:26 | ED MED RECONCILIATION SUMMARY ---
Patient: KATHY MORILLO Vane Medication Reconciliation Report [facility] VisitID: [id number] [address] [place] [address] 65y, F Registration Date/Time: 06/16/2016 Weight: 68.0 kg Height/Length: 65 in. BMI: 25.0 ALLERGIES: Morphine Sulfate The patient's Home Medications are listed below: CONTINUE TAKING THE FOLLOWING MEDICATIONS: Albuterol Sulfate HFA Inhalation Atenolol Oral Lisinopril Oral Omeprazole Oral The source(s) of the original Home Medication information: Not obtained. The following Medications were given to the patient in the Emergency Department: None. The following Medications were prescribed to the patient: None.
--- NOTE | 2016-06-19 04:26 | ED MED RECONCILIATION SUMMARY ---
Patient: KATHY MORILLO Vane Medication Reconciliation Report [facility] VisitID: [id number] [address] [place] [address] 65y, F Registration Date/Time: 06/16/2016 Weight: 68.0 kg Height/Length: 65 in. BMI: 25.0 ALLERGIES: Morphine Sulfate The patient's Home Medications are listed below: CONTINUE TAKING THE FOLLOWING MEDICATIONS: Albuterol Sulfate HFA Inhalation Atenolol Oral Lisinopril Oral Omeprazole Oral The source(s) of the original Home Medication information: Not obtained. The following Medications were given to the patient in the Emergency Department: None. The following Medications were prescribed to the patient: None.
== END 2016-06-17 03:05 | disposition home or self-care (01) ==
LOC: ED SRH 22:58
DX: R07.9 Chest pain, unspecified (principal); I10 Essential (primary) hypertension; Z79.51 Long term (current) use of inhaled steroids; Z79.899 Other long term (current) drug therapy; Z88.5 Allergy status to narcotic agent
CPT/HCPCS: 90004; 90100; 90616; 91556; 94060; 95059